=== PATIENT | female | born 1945 | race Caucasian/White ===

== ENCOUNTER 2016-10-01 11:42 | Emergency (ER) | payer MEDICARE, BC ==
[2016-10-01 11:53] VITALS: RESP 18; TEMP 99; O2SAT 100
[2016-10-01 14:03] VITALS: BP 166/67; PULSE 58
== END 2016-10-01 13:00 | disposition home or self-care (01) | DRG 563 ==
LOC: ED 11:42
DX: S63.502A Unspecified sprain of left wrist, initial encounter (principal); W19.XXXA Unspecified fall, initial encounter
CPT/HCPCS: 73110; 99282

== ENCOUNTER 2017-07-19 08:46 | Emergency (ER) | payer MEDICARE, BC ==
[2017-07-19 08:48] VITALS: O2SAT 98
[2017-07-19 09:01] VITALS: RESP 20; TEMP 98
[2017-07-19] MEDS ORDERED: TRAMADOL HYDROCHLORIDE 50 MG TAB PO ONE (09:33)
[2017-07-19] MEDS ORDERED: TRAMADOL HYDROCHLORIDE 50 MG TAB ONE (09:34)
[2017-07-19 09:35] LABS: CALCIUM 9.1 mg/dl (8.5-10.1); POTASSIUM 3.9 mMol/L (3.5-5.1)
[2017-07-19 11:07] VITALS: BP 132/61; PULSE 60
== END 2017-07-19 10:53 | disposition home or self-care (01) | DRG 556 ==
LOC: ED 08:46
DX: M25.561 Pain in right knee (principal); M25.461 Effusion, right knee; Z96.651 Presence of right artificial knee joint; Z79.01 Long term (current) use of anticoagulants
CPT/HCPCS: 36415; 73560; 80048; 85378; 85610; 99282; 99283

== ENCOUNTER 2018-06-20 20:47 | Emergency (ER) | payer MEDICARE, BC ==
[2018-06-20 21:08] VITALS: TEMP 97.2
[2018-06-20 21:32] LABS: BASOPHILS % (AUTO) 1 % (0-3); EOSINOPHILS % (AUTO) 1 % (0-9); HEMATOCRIT 43 % (35-47); HEMOGLOBIN 13.5 gm/dl (12.0-15.5); LYMPHOCYTES % (AUTO) 21.1 % (10-50); MEAN CORPUSCULAR HEMOGLOBIN 27.9 pg (27.0-32.0); MEAN CORPUSCULAR HGB CONC 31.5 gm/dl (32.0-36.0); MEAN CORPUSCULAR VOLUME 89 fL (81-99); MONOCYTES % (AUTO) 8.5 % (0-12); NEUTROPHILS % (AUTO) 69.3 % (37-80)
[2018-06-20 21:42] LABS: INR 2.95 (0.86-1.12)
[2018-06-20 21:45] LABS: APPEARANCE,URINE Cloudy; BILIRUBIN,URINE NEGATIVE (NEGATIVE); COLOR,URINE Yellow; GLUCOSE, URINE (UA) NEGATIVE (NEGATIVE); KETONES,URINE TRACE (NEGATIVE); LEUKOCYTE ESTERASE ,URINE 1+ (NEGATIVE); NITRATE,URINE POSITIVE (NEGATIVE); OCCULT BLOOD,URINE 1+ (NEG-TRACE); UROBILINOGEN,URINE 0.2 (0.2-1.0 EU)
[2018-06-20 21:58] LABS: BACTERIA 3+ (< 1+); CRYSTALS NEGATIVE (0-3 AVE/HPF); EPITHELIAL CELLS 0-3 (SQUAMOUS); WBC,URINE 30-35 (0-5AV/HPF)
[2018-06-20 22:01] LABS: CALCIUM 8.8 mg/dl (8.5-10.1); CARBON DIOXIDE 32.9 mEq/L (21-32); CREATININE 0.93 mg/dl (0.60-1.00); POTASSIUM 3.1 mMol/L (3.5-5.1); TROP I 0.019 ng/ml (0.000-0.056)
[2018-06-20] MEDS ORDERED: CEPHALEXIN 250 MG/5 ML BOTTLE PO ONE (22:08)
[2018-06-20] MEDS ORDERED: POTASSIUM CHLORIDE 10 MEQ TER PO ONE (22:08)
[2018-06-20] MEDS ORDERED: POTASSIUM CHLORIDE 10 MEQ TER ONE (22:18)
[2018-06-20] MEDS ORDERED: CEPHALEXIN 250 MG/5 ML BOTTLE ONE (22:23)
[2018-06-20 22:42] VITALS: BP 103/57; PULSE 66; RESP 22; O2SAT 98
== END 2018-06-20 22:44 | disposition home or self-care (01) | DRG 690 ==
LOC: ED 20:47
DX: N30.00 Acute cystitis without hematuria (principal); D68.51 Activated protein C resistance; B96.20 Unspecified Escherichia coli [E. coli] as the cause of diseases classified elsewhere; E87.6 Hypokalemia; R42 Dizziness and giddiness; I49.9 Cardiac arrhythmia, unspecified
CPT/HCPCS: 36415; 70450; 80048; 81001; 84443; 84484; 85025; 85610; 87077; 87088; 87186; 93005; 99284; A9270-GY

== ENCOUNTER 2018-08-19 13:13 | Emergency (ER) | payer MEDICARE, BC ==
[2018-08-19 13:22] VITALS: RESP 20; TEMP 98.1
[2018-08-19] MEDS ORDERED: FENTANYL 100MCG/2ML SOL IV ONE ×2 (13:28→15:12)
[2018-08-19] MEDS ORDERED: FENTANYL 100MCG/2ML SOL ONE ×2 (13:32→15:12)
[2018-08-19 14:11] LABS: BASOPHILS % (AUTO) 0 % (0-3); EOSINOPHILS % (AUTO) 0 % (0-9); HEMATOCRIT 46 % (35-47); HEMOGLOBIN 14.6 gm/dl (12.0-15.5); LYMPHOCYTES % (AUTO) 18.1 % (10-50); MEAN CORPUSCULAR HEMOGLOBIN 28.2 pg (27.0-32.0); MEAN CORPUSCULAR HGB CONC 31.7 gm/dl (32.0-36.0); MEAN CORPUSCULAR VOLUME 89 fL (81-99); MONOCYTES % (AUTO) 7.2 % (0-12); NEUTROPHILS % (AUTO) 73.8 % (37-80)
[2018-08-19 14:14] LABS: INR 1.65 (0.86-1.12)
[2018-08-19 14:15] LABS: CALCIUM 9.4 mg/dl (8.5-10.1); CARBON DIOXIDE 31.8 mEq/L (21-32); CREATININE 0.84 mg/dl (0.60-1.00)
[2018-08-19 14:17] LABS: POTASSIUM 2.8 mMol/L (3.5-5.1)
[2018-08-19] MEDS ORDERED: POTASSIUM CHLORIDE 10 MEQ TER PO ONE (16:06)
[2018-08-19] MEDS ORDERED: POTASSIUM CHLORIDE 10 MEQ TER ONE (16:41)
[2018-08-19] MEDS ORDERED: TDAP VACCINE 0.5 ML SUS IM ONE ×2 (17:14→17:16)
[2018-08-19 17:42] VITALS: BP 153/71; PULSE 87; O2SAT 97
== END 2018-08-19 17:30 | disposition short-term general hospital (02) | DRG 536 ==
LOC: ED 13:13
DX: S72.141A Displaced intertrochanteric fracture of right femur, initial encounter for closed fracture (principal); W17.89XA Other fall from one level to another, initial encounter; Z79.01 Long term (current) use of anticoagulants
CPT/HCPCS: 73502; 73700; 80048; 85025; 85610; 90471; 90715; 96374; 99284; 99285; G0390; J3010; A9270-GY

== ENCOUNTER 2018-08-23 09:11 | Inpatient (IN) | payer MEDICARE, BC ==
[2018-08-23] MEDS ORDERED: CYCLOBENZAPRINE HYDROCHLORID 5 MG TAB PO PRN (18:26)
[2018-08-23] MEDS: APAP/HYDROCODONE 1 EACH TABLET PO PRN (18:58)
[2018-08-23] MEDS ORDERED: WARFARIN SODIUM 5 MG TAB PO SCH (20:00)
[2018-08-23 20:30] LABS: CALCIUM 8.2 mg/dl (8.5-10.1); CREATININE 0.84 mg/dl (0.60-1.00); POTASSIUM 4.4 mMol/L (3.5-5.1)
[2018-08-23] MEDS: ENOXAPARIN 60 MG SOL SC SCH (20:52)
[2018-08-23] MEDS: TEMAZEPAM 15MG 15 MG CAP PO PRN (23:43)
[2018-08-24 07:40] LABS: BASOPHILS % (AUTO) 1 % (0-3); EOSINOPHILS % (AUTO) 2 % (0-9); HEMATOCRIT 29 % (35-47); LYMPHOCYTES % (AUTO) 23.9 % (10-50); MEAN CORPUSCULAR VOLUME 90 fL (81-99); MONOCYTES % (AUTO) 10.6 % (0-12); NEUTROPHILS % (AUTO) 62.3 % (37-80)
[2018-08-24 07:50] LABS: INR 1.84 (0.86-1.12)
[2018-08-24] MEDS: ENOXAPARIN 60 MG SOL SC SCH ×2 (08:43→21:45)
[2018-08-24] MEDS: LISINOPRIL 5 MG TAB PO SCH (08:44)
[2018-08-24] MEDS: CHOLECALCIFEROL 1,000 IU TAB PO SCH (08:44)
[2018-08-24] MEDS: ASPIRIN 81 MG CHEWABLE CTB PO SCH (08:44)
[2018-08-24] MEDS ORDERED: FUROSEMIDE 20 MG TAB PO SCH (09:00)
[2018-08-24] MEDS: CALCIUM CARBONATE 500 MG TAB PO SCH (11:05)
[2018-08-24] MEDS: CYANOCOBALAMIN 100 MCG TAB PO SCH (11:06)
[2018-08-24] MEDS: CHLORTHALIDONE 25 MG TAB PO SCH (11:07)
[2018-08-24] MEDS: MINERALS PO SCH (11:07)
[2018-08-24] MEDS: [UNRECOGNIZED DRUG - OTHER] PO SCH (11:07)
[2018-08-24] MEDS: VITS A C E PO SCH (11:07)
[2018-08-24] MEDS: LUTEIN PO SCH (11:07)
[2018-08-24] MEDS: NITROFURANTOIN 100 MG CAP PO SCH ×2 (11:08→21:44)
[2018-08-24] MEDS: LACTOBACILLUS COMBINATION NO 8 PO SCH (11:08)
[2018-08-24] MEDS: CINNAMON BARK PO SCH ×3 (11:10→21:45)
[2018-08-24] MEDS: ALA PO SCH ×3 (11:10→21:45)
[2018-08-24] MEDS: CHROMIUM PO SCH ×3 (11:10→21:45)
[2018-08-24] MEDS: [UNRECOGNIZED DRUG - OTHER] PO SCH ×3 (11:10→21:45)
[2018-08-24] MEDS: APAP/HYDROCODONE 1 EACH TABLET PO PRN ×2 (11:14→18:20)
[2018-08-24] MEDS ORDERED: WARFARIN SODIUM 5 MG TAB PO SCH (18:00)
[2018-08-24] MEDS ORDERED: WARFARIN SODIUM 2.5 MG TAB PO SCH (20:00)
[2018-08-24] MEDS: TEMAZEPAM 15MG 15 MG CAP PO PRN (22:21)
[2018-08-25] MEDS: APAP/HYDROCODONE 1 EACH TABLET PO PRN ×4 (02:44→23:07)
[2018-08-25] MEDS: ENOXAPARIN 60 MG SOL SC SCH (07:56)
[2018-08-25 08:06] LABS: INR 2.38 (0.86-1.12)
[2018-08-25] MEDS: [UNRECOGNIZED DRUG - OTHER] PO SCH (08:09)
[2018-08-25] MEDS: LUTEIN PO SCH (08:09)
[2018-08-25] MEDS: NITROFURANTOIN 100 MG CAP PO SCH ×2 (08:09→21:19)
[2018-08-25] MEDS: MINERALS PO SCH (08:09)
[2018-08-25] MEDS: VITS A C E PO SCH (08:09)
[2018-08-25] MEDS: CHLORTHALIDONE 25 MG TAB PO SCH (08:10)
[2018-08-25] MEDS: LACTOBACILLUS COMBINATION NO 8 PO SCH (08:10)
[2018-08-25] MEDS: CYANOCOBALAMIN 100 MCG TAB PO SCH (08:10)
[2018-08-25] MEDS: LISINOPRIL 5 MG TAB PO SCH (08:11)
[2018-08-25] MEDS: CINNAMON BARK PO SCH ×2 (08:11→21:18)
[2018-08-25] MEDS: CHROMIUM PO SCH ×2 (08:11→21:18)
[2018-08-25] MEDS: CALCIUM CARBONATE 500 MG TAB PO SCH (08:11)
[2018-08-25] MEDS: [UNRECOGNIZED DRUG - OTHER] PO SCH ×2 (08:11→21:18)
[2018-08-25] MEDS: ALA PO SCH ×2 (08:11→21:18)
[2018-08-25] MEDS: CHOLECALCIFEROL 1,000 IU TAB PO SCH (08:12)
[2018-08-25] MEDS: ASPIRIN 81 MG CHEWABLE CTB PO SCH (08:12)
[2018-08-25] MEDS: FUROSEMIDE 40 MG TAB PO SCH (08:12)
[2018-08-25] MEDS ORDERED: WARFARIN SODIUM 5 MG TAB PO ONE (18:00)
[2018-08-25] MEDS: TEMAZEPAM 15MG 15 MG CAP PO PRN (23:07)
[2018-08-26 07:47] LABS: INR 3.27 (0.86-1.12)
[2018-08-26] MEDS: LACTOBACILLUS COMBINATION NO 8 PO SCH (08:45)
[2018-08-26] MEDS: ALA PO SCH (08:45)
[2018-08-26] MEDS: [UNRECOGNIZED DRUG - OTHER] PO SCH (08:45)
[2018-08-26] MEDS: LUTEIN PO SCH (08:45)
[2018-08-26] MEDS: CINNAMON BARK PO SCH (08:45)
[2018-08-26] MEDS: [UNRECOGNIZED DRUG - OTHER] PO SCH (08:45)
[2018-08-26] MEDS: MINERALS PO SCH (08:45)
[2018-08-26] MEDS: CHROMIUM PO SCH (08:45)
[2018-08-26] MEDS: VITS A C E PO SCH (08:45)
[2018-08-26] MEDS: CYANOCOBALAMIN 100 MCG TAB PO SCH (08:46)
[2018-08-26] MEDS: CHLORTHALIDONE 25 MG TAB PO SCH (08:46)
[2018-08-26] MEDS: CALCIUM CARBONATE 500 MG TAB PO SCH (08:47)
[2018-08-26] MEDS: NITROFURANTOIN 100 MG CAP PO SCH (08:47)
[2018-08-26] MEDS: CHOLECALCIFEROL 1,000 IU TAB PO SCH (08:48)
[2018-08-26] MEDS: ASPIRIN 81 MG CHEWABLE CTB PO SCH (08:48)
[2018-08-26] MEDS: LISINOPRIL 5 MG TAB PO SCH (08:49)
[2018-08-26] MEDS: FUROSEMIDE 40 MG TAB PO SCH (08:49)
[2018-08-26 10:40] VITALS: BP 94/60; PULSE 65; RESP 16; TEMP 97.6; O2SAT 100
[2018-08-26] MEDS: APAP/HYDROCODONE 1 EACH TABLET PO PRN (10:57)
[2018-08-26] MEDS ORDERED: WARFARIN SODIUM 2.5 MG TAB PO SCH (18:00)
== END 2018-08-26 13:05 | disposition home or self-care (01) | DRG 560 ==
LOC: ACUTE CARE 14:52
PROVIDERS: ADMIT Family Medicine; ATTEND Family Medicine
PROC: F01K5ZZ Range of Motion and Joint Integrity Assessment of Musculoskeletal System - Upper Back / Upper Extremity (ICD-10-PCS; principal; 2018-08-24)
PROC: F02Z3ZZ Grooming/Personal Hygiene Assessment (ICD-10-PCS; 2018-08-24)
DX: S72.001D Fracture of unspecified part of neck of right femur, subsequent encounter for closed fracture with routine healing (principal); D68.51 Activated protein C resistance; I10 Essential (primary) hypertension; Z98.890 Other specified postprocedural states; Z79.01 Long term (current) use of anticoagulants
CPT/HCPCS: 36415; 73502; 80048; 85025; 85610; J1650; A9270; A9270-GY

== ENCOUNTER 2018-09-21 09:17 | Outpatient (CLI) | payer OTHER, MEDICARE, BC ==
[2018-08-26 10:40] VITALS: O2SAT 100
== END 2018-09-21 09:18 | disposition home or self-care (01) | DRG 951 ==
LOC: CONVCARE 09:17
PROVIDERS: ATTEND Orthopaedic Surgery
DX: Z98.890 Other specified postprocedural states (principal)
CPT/HCPCS: 73502

== ENCOUNTER 2019-05-05 10:14 | Emergency (ER) | payer MEDICARE, BC ==
[2019-05-05 10:26] VITALS: RESP 18; TEMP 97.6
[2019-05-05] MEDS ORDERED: ONDANSETRON HCL 4 MG/2 ML SOL IV ONE (10:28)
[2019-05-05] MEDS ORDERED: SODIUM CHLORIDE 0.9% 1000ML 1,000 ML IV SCH (10:30)
[2019-05-05] MEDS ORDERED: ONDANSETRON HCL 4 MG/2 ML SOL ONE (10:32)
[2019-05-05 10:55] LABS: CALCIUM 8.9 mg/dl (8.5-10.1); CARBON DIOXIDE 34.9 mEq/L (21-32); CREATININE 0.55 mg/dl (0.60-1.00)
[2019-05-05 11:19] LABS: BASOPHILS % (AUTO) 1 % (0-3); EOSINOPHILS % (AUTO) 1 % (0-9); HEMATOCRIT 45 % (35-47); HEMOGLOBIN 14.5 gm/dl (12.0-15.5); LYMPHOCYTES % (AUTO) 13.7 % (10-50); MEAN CORPUSCULAR HEMOGLOBIN 28.3 pg (27.0-32.0); MEAN CORPUSCULAR HGB CONC 31.9 gm/dl (32.0-36.0); MEAN CORPUSCULAR VOLUME 89 fL (81-99); MONOCYTES % (AUTO) 10.9 % (0-12); NEUTROPHILS % (AUTO) 74.1 % (37-80)
[2019-05-05] MEDS ORDERED: ACETAMINOPHEN 500 MG 500 MG TAB ONE (11:44)
[2019-05-05] MEDS ORDERED: ACETAMINOPHEN 500 MG 500 MG TAB PO ONE (11:45)
[2019-05-05] MEDS ORDERED: PROCHLORPERAZINE EDISYLATE 5 MG/ML SOL IV ONE (13:01)
[2019-05-05 13:12] LABS: APPEARANCE,URINE Slightly Cloudy; BILIRUBIN,URINE NEGATIVE (NEGATIVE); COLOR,URINE Yellow; GLUCOSE, URINE (UA) NEGATIVE (NEGATIVE); KETONES,URINE NEGATIVE (NEGATIVE); LEUKOCYTE ESTERASE ,URINE TRACE (NEGATIVE); NITRATE,URINE NEGATIVE (NEGATIVE); OCCULT BLOOD,URINE 1+ (NEG-TRACE); PH,URINE 7.5
[2019-05-05] MEDS ORDERED: PROCHLORPERAZINE EDISYLATE 5 MG/ML SOL ONE (13:14)
[2019-05-05 13:31] LABS: BACTERIA 3+ (< 1+); CRYSTALS NEGATIVE (0-3 AVE/HPF); EPITHELIAL CELLS 0-2 (SQUAMOUS)
[2019-05-05] MEDS ORDERED: PREDNISONE 20 MG TAB PO ONE (15:03)
[2019-05-05 15:34] VITALS: BP 156/81; PULSE 76; O2SAT 94
== END 2019-05-05 14:30 | disposition home or self-care (01) | DRG 392 ==
LOC: ED 10:14
DX: K52.9 Noninfective gastroenteritis and colitis, unspecified (principal); R11.2 Nausea with vomiting, unspecified; E86.0 Dehydration; I50.9 Heart failure, unspecified
CPT/HCPCS: 70450; 74177; 80048; 81001; 85025; 96365; 96366; 96374; 96375; 99283; 99285; J0780; J2405; Q9967